=== PATIENT | male | born 1995 | race Caucasian/White ===

== ENCOUNTER → 2024-11-29 09:35 | Outpatient (REF) | payer BC, SELFPAY ==
[2024-11-29 10:43] LABS: Hematocrit 47.9 % (39.0-52.0); Hemoglobin 16.8 g/dL (13.0-18.0); Mean Corp Hgb Conc. 35.1 g/dL (33.0-37.0); Mean Corpuscular Volume 86.9 fL (80.0-94.0); Nucleated Red Blood Cells % 0 % (-); Platelet Count 267 10^3/uL (130-400); Red Cell Dist. Width 11.6 % (11.5-14.5)
[2024-11-29 12:05] LABS: Glycohemoglobin (HgbA1c) 7.5 % (4.0-5.6)
[2024-11-29 15:09] LABS: TSH 0.81 uIU/ml (0.47-4.68)
[2024-11-29 15:14] LABS: ALT (SGPT) 122 U/L (0-50); AST (SGOT) 58 U/L (17-59); Albumin 4.9 g/dl (3.5-5.0); Alkaline Phosphatase 107 U/L (38-126); Blood Urea Nitrogen 13 mg/dl (9-20); Calcium 9.9 mg/dl (8.4-10.2); Carbon Dioxide 26 mmol/L (22-30); Chloride 103 mmol/L (98-107); Glucose 184 mg/dl (70-99); HDL Cholesterol 33 mg/dl; LDL Cholesterol, Calculated 187 mg/dl; Potassium 4.6 mmol/L (3.5-5.1); Sodium 137 mmol/L (135-145); Total Protein 8.1 g/dl (6.3-8.2); Very Low Density Lipoprotein 45 mg/dl (0-30); eGFR > 60.00
== END ==
LOC: REG 09:35
PROVIDERS: ATTENDING PHYSICIAN Internal Medicine
DX: E66.09 Other obesity due to excess calories (principal); E78.2 Mixed hyperlipidemia; F41.1 Generalized anxiety disorder
CPT/HCPCS: 36415; 80053; 80061; 83036; 84443; 85025

== ENCOUNTER → 2025-01-02 13:20 | Outpatient (REF) | payer BC, SELFPAY ==
--- NOTE | 2024-12-21 09:08 | PN.DIAED02 ---
Referral
DSME Class Series Code: [id number]
Referred For: Diabetes Self-Management Training, Management of Diabetes During , Medical Nutrition Therapy, Self-Blood Glucose Monitoring, Long-Term Complication Instruction, Accute Complication Instruction, Continuous Glucose Monitoring,
Medication management, Care Coordination, Disease Management
PHI Release Authorization Form Signed: Yes
Patient Problems:
Current Active Problems
Problem Status Onset
Type 2 diabetes mellitus with hyperglycemia Chronic
Demographic
(1) Type 2 diabetes mellitus with hyperglycemia
Status: Chronic
Qualifiers:
Diabetes mellitus penitentiary insulin use: without termite exterminator helper use Qualified Code(s): E11.65 - Type 2 diabetes mellitus with hyperglycemia
Code(s): E11.65 - Type 2 diabetes mellitus with hyperglycemia
Patient's primary language-: [place]
Education: College degree
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
Hours Worked/Week: > 40
- Social
Primary Support Person: Self & spouse
Primary Care Takers: Self & spouse
Living Arrangements: Self & spouse, Family
- Learning Methods
Preferred Method: Reading, Hands-on demonstration
Barriers to Learning: None
Glycemic Control
- Blood Glucose Monitoring Assessment
Date: 12/21/24 (FBS in office 123)
Monitor Brands: Other (provided Contour Next Gen sample kit)
- Hyperglycemia Assessment
Experiences Hyperglycemia: No
- Hypoglycemia Assessment
Patient experiences hypoglycemia: No
- Blood Glucose Monitoring Results
Source: meter (123 FBS in office)
- Hemoglobin A1c
Date: 11/29/24
A1C Percentage (%): 7.5
Medical History of Diabetes
Family Diabetes History: Mother, Father, Grandmother, Grandfather, Multiple family members
Previous Diabetes Education: No
Previous visit with Dietitian: No
Complications/Comorbidity/Specialist: Hyperlipidemia (Rosuvastatin 10 mg QD), Metabolic (T2D - Metformin 500mg BID), Other / symptoms (Adderall XR 30 mg QD, Lexapro 10 mg QD, Melatonin 5 mg QD)
Measures
- Anthropometrics
Height: 5 ft 9 in
Actual Weight: 229 lb 9.6 oz
- Blood Pressure / Pulse
Blood pressure: 118/80
Pulse: 97
- Diabetes Management
Medical Management for Diabetes: Complete physical exam (12/05/2024), Dental exam (07/10/2024), Dilated eye exam (11/04/2021 )
Self-Care
- Tobacco Usage
Do you now, or have you ever smoked?: Quit in last year (did not specify his quit date)
- Alcohol & Drugs Usage
Drinks Alcohol: Yes
Amount/day: 1-2 drinks per day
- Meals & Dining
Meals & Dining: Patient skips meals: Yes, Food Intolerance / Allergy: No, Cultural / Druze Dietary Needs: No
Primary Food Crayon Painter: Self
Primary Casting Cleaner: Self
Dining Out Frequency: Occasionally (< 1/week)
- Physical Activity
Physical Limitation: No
Patient participates in physical Activity: Yes
Activity Types: Strength training
Duration: 21-30 minutes
Frequency: 3-5x per week (3/week)
- Self Foot-Care
Foot Problems: None
- Patient-Self Assessment
Diabetes Knowledge: Fair
Feelings About Diabetes: Adaptation
General Health: Fair
Importance of Health: Somewhat
Stress Level: Medium
Diabetes Interferes With:: Nothing
Barriers to Diabetes Management: Nothing
Depression Survey Score: 3
- Diabetes Identification
Carries Diabetes Identification: No
Diabetes Identification Information Provided: Yes
Care Plan
- Education Needs
Patient Education Needs: Diabetes disease process, Chronic complications, Acute complications, Medication, Monitoring, Physical activity, Psychosocial Adjustment, Nutritional management, Goal setting & problem solving
Recommended Diabetes Training Program based on assessment: Outpatient Diabetes Education Program
- Plan of Care
Plan of Care:
12/21/2024 DIABETES EDUCATION CONSULTATION
Met with participant today for registration and initiation of Diabetes Self-management. Pt was recommended by his PCP due to HbA1c of 7.5% on
11/29/2024. He has never had labs completed in the past, states he expected a diagnosis of pre diabetes due to family history and was surprised at diagnosis of DM.
He does not monitor glucose, states his MD wants to wait until his next HbA1c. I provided sample of Contour Next glucose meter and supplies. Demonstrated how to monitor glucose and recommended he check once a day in the AM and alternate 2 hours
after meals and review with provider. BS today was 123 fasting. He will contact office with BS readings prior to class or at class for review. States he will decide whether he wants refills of glucose testing supplies after initial testing. I
also provided information on [employer] diabetes testing supplies if he would like to purchase outside of insurance.
We reviewed complications of diabetes, fasting and 2 hour post prandial glucose goals, signs and symptoms of hyperglycemia, signs and symptoms of hypoglycemia, and hypoglycemia protocol. We discussed exercise recommendations of at least 30 minutes
per day to help lower glucose levels. He currently lifts weights 3 days a week for 30 minutes. He expressed interest in walking after meals to increase activity. He has made some dietary changes since diagnosis: decreased portions and snacks
after dinner. He has not had an eye exam since 2021, I encouraged him to make an eye exam and inform MD of DM dx and expressed the importance of annual exams.
I reviewed and provided diabetes management booklet, he did contact his insurance company and was informed the classes are covered. I did explain their may be a cost even if covered and to contact insurance for additional details. He verbalized
acknowledgement.
He has phone # for office if additional needs arise prior to class.
--- NOTE | 2024-12-21 09:38 | PN.DIAED04 ---
Education Record
- Education Record
Class Attended: Other (Initial DSME consultation 12/21/2024)
DSME Class Series Code: [id number]
Instructor: Registered Nurse (Sandra Womack RN)
Pre-Program Knowledge: Needs review / Assistance
Pre-Test Score (%): 62
Goals
- Goal 1
Being Active: Exercise 15 minutes-3 times per week (cardiovascular (already participates in wt training))
Goals To Be Evaluated: Exercise 15 mins-3x/week
- Goal 2
Healthy Eating: Patient will be able to plan a meal (has cut back on portions and snacks)
Goals To Be Evaluated: Be able to plan a meal
- Goal 3
Monitoring: Other (gave glucometer kit, will test for 9 days and review)
Goals To Be Evaluated: Other
--- NOTE | 2025-01-03 14:34 | PN.DIAED14 ---
This is to notify you that your patient with diabetes, ROBINSON CORNEJO ( 1995), has enrolled in our diabetes self-management classes that are being held at [facility].
These classes will include an introduction to diabetes, diet, medication, exercise and prevention of complications. At the end of our class series, you will receive a report of your patient's participation and progress for your records.
Please contact me at the [facility], , if there is any particular information regarding your patient that might be helpful to me.
Sincerely,
Toni CHO-, [facility]
--- NOTE | 2025-01-03 14:34 | PN.DIAED04 ---
Education Record
- Education Record
Class Attended: Class 1
DSME Class Series Code: [id number]
Instructor: Registered Nurse (Sandra Womack RN)
Class Curriculum:
Outpatient Diabetes Education Program:
Class 1 (120 minutes)
Describe the diabetes disease process and treatment options
Diabetes management
Develop personal strategies to promote health and behavior change
Integrate psychosocial adjustment for daily living
Monitor blood glucose and other parameters. Interpret and use the results for self-management decision making
Prevent, detect, and treat acute complications
Class Length (mins): 120
Post-Class 1 Test Score (%): 100
== END ==
LOC: DES 13:20
PROVIDERS: ATTENDING PHYSICIAN Internal Medicine
DX: E11.9 Type 2 diabetes mellitus without complications (principal)
CPT/HCPCS: 99078

== ENCOUNTER → 2025-01-09 08:47 | Outpatient (REF) | payer BC, SELFPAY ==
--- NOTE | 2025-01-10 10:02 | PN.DIAED04 ---
Education Record
- Education Record
Class Attended: Class 2
DSME Class Series Code: [id number]
Instructor: Registered Dietitian (Katya Randle, RD, LDN, CDE)
Class Curriculum:
Outpatient Diabetes Education Program:
Class 2 (120 minutes)
Incorporate nutritional management into lifestyle
Understanding nutritional value
Understanding carbohydrate counting
Class Length (mins): 120
== END ==
LOC: DES 08:47
PROVIDERS: ATTENDING PHYSICIAN Internal Medicine
DX: E11.9 Type 2 diabetes mellitus without complications (principal)
CPT/HCPCS: 99078

== ENCOUNTER → 2025-01-16 13:16 | Outpatient (REF) | payer BC, SELFPAY ==
--- NOTE | 2025-01-17 14:33 | PN.DIAED04 ---
Education Record
- Education Record
Class Attended: Class 3
DSME Class Series Code: [id number]
Instructor: Registered Dietitian (Katya Randle, RD, LDN, CDE)
Class Curriculum:
Outpatient Diabetes Education Program:
Class 3 (120 minutes)
Incorporate nutritional management into lifestyle
Class Length (mins): 120
Post-Class 2 & 3 Test Score (%): 100
== END ==
LOC: DES 13:16
PROVIDERS: ATTENDING PHYSICIAN Internal Medicine
DX: E11.9 Type 2 diabetes mellitus without complications (principal)
CPT/HCPCS: 99078

== ENCOUNTER → 2025-01-23 13:16 | Outpatient (REF) | payer BC, SELFPAY ==
--- NOTE | 2025-01-24 13:31 | PN.DIAED04 ---
Education Record
- Education Record
Class Attended: Class 4
DSME Class Series Code: [id number]
Instructor: Registered Nurse (Sandra Womack RN)
Class Curriculum:
Outpatient Diabetes Education Program:
Class 4 (120 minutes)
Develop personal strategies to promote health and behavior change
Incorporate physical activity into lifestyle
Utilize medications safety for maximum therapeutic effectiveness
Understand different medication/insulin mechanism of action
Preparing for travel
Class Length (mins): 120
Post-Class 4 Test Score (%): 93
== END ==
LOC: DES 13:16
PROVIDERS: ATTENDING PHYSICIAN Internal Medicine
DX: E11.9 Type 2 diabetes mellitus without complications (principal)
CPT/HCPCS: 99078

== ENCOUNTER → 2025-01-30 09:29 | Outpatient (REF) | payer BC, SELFPAY ==
--- NOTE | 2025-02-01 11:57 | PN.DIAED04 ---
Education Record
- Education Record
Class Attended: Class 5
DSME Class Series Code: [id number]
Instructor: Registered Nurse (Sandra Womack RN)
Class Curriculum:
Outpatient Diabetes Education Program:
Class 5 (120 minutes)
Prevent, detect, and treat acute complications
Prevent, detect, and treat chronic complications through risk reduction
Develop personal strategies to address psychosocial issues and concerns
Development of diabetes self-management support plan
Letter to physician with DSMS plan attached sent
Class Length (mins): 120
Post-Program Knowledge: Demonstrates competency
Post-Test Score (%): 90
Post-Program Assessment
- Post-Program Assessment
Actual Weight: 226 lb 9.6 oz
Blood pressure: 130/80
Post-Program Depression Survey Score: 9
Reviewing Previous Goals?: Yes
Pre-Program Depression Survey Score: 3
- Goals 1 Evaluation
Goals To Be Evaluated: Exercise 15 mins-3x/week
- Goals 2 Evaluation
Goals To Be Evaluated: Be able to plan a meal
- Goals 3 Evaluation
Goals To Be Evaluated: Get numbers back to normal
--- NOTE | 2025-02-01 11:58 | PN.DIAED16 ---
This is to notify you that your patient with diabetes, ROBINSON CORNEJO ( 1995), has attended the entire series of Diabetes Self-Management Education Classes.
Class 1 (120 minutes): Diabetes Overview - monitoring, stress/psychosocial adjustment, support, goal setting
Class 2 (120 minutes): Meal Planning - serving sizes, menu plans
Class 3 (120 minutes): Introduction to Carbohydrate Counting, Analyzing Food Labels
Class 4 (120 minutes): Medication, Exercise and Activity
Class 5 (120 minutes): Sick Day Management, Strategies to Reduce Complications, Problem Solving, Resources
The following behavioral goals were identified:
Goal #1: Exercise 15 mins-3x/week
Goal #2: Be able to plan a meal
Goal #3: Get numbers back to normal
A follow-up call will be made within three to six months to evaluate attainment of these goals and to check post-program Hemoglobin A1c and overall progress. All class participants are encouraged to contact me if I can be any further assistance in
learning how to manage their diabetes.
Sincerely,
Toni CHO-, [facility]
== END ==
LOC: DES 09:29
PROVIDERS: ATTENDING PHYSICIAN Internal Medicine
DX: E11.9 Type 2 diabetes mellitus without complications (principal)
CPT/HCPCS: 99078

== ENCOUNTER → 2025-03-02 09:24 | Outpatient (REF) | payer BC, SELFPAY ==
[2025-03-02 11:48] LABS: ALT (SGPT) 100 U/L (0-50); AST (SGOT) 52 U/L (17-59); Albumin 4.8 g/dl (3.5-5.0); Alkaline Phosphatase 86 U/L (38-126); Blood Urea Nitrogen 11 mg/dl (9-20); Calcium 9.8 mg/dl (8.4-10.2); Carbon Dioxide 26 mmol/L (22-30); Chloride 104 mmol/L (98-107); Glucose 114 mg/dl (70-99); HDL Cholesterol 31 mg/dl; LDL Cholesterol, Calculated 60 mg/dl; Potassium 4.5 mmol/L (3.5-5.1); Sodium 137 mmol/L (135-145); Total Protein 7.8 g/dl (6.3-8.2); Very Low Density Lipoprotein 27 mg/dl (0-30); eGFR > 60.00
[2025-03-02 12:16] LABS: Glycohemoglobin (HgbA1c) 6.0 % (4.0-5.9)
== END ==
LOC: REG 09:24
PROVIDERS: ATTENDING PHYSICIAN Internal Medicine
DX: E11.9 Type 2 diabetes mellitus without complications (principal)
CPT/HCPCS: 36415; 80053; 80061; 83036